=== PATIENT | female | born 1960 | race Caucasian/White ===

== ENCOUNTER 2017-12-01 15:08 | Emergency (ER) | payer BC, OTHER ==
[~2017-12-01] VITALS: Ht 172.7 cm; Wt 86.1 kg
[2017-12-01 15:13] VITALS: BP 162/84; PULSE 67; TEMP 36.7; O2SAT 98; Ht 172.7 cm; Wt 86.1 kg
--- NOTE | 2017-12-01 15:58 | DIAGNOSTIC IMAGING REPORT ---
L KNEE 3 VIEWS CLINICAL HISTORY: 57 years-old Female presenting with L knee pain. Please include standing/weight bearing AP. TECHNIQUE: Frontal view of the bilateral knees in standing position, lateral view of the left knee with weightbearing, and crosstable lateral and sunrise views of the left knee were obtained. COMPARISON: 08/18/2014. FINDINGS: The knee joints are essentially symmetric. General changes are noted of both knees. No gross evidence of acute osseous injury of the right knee. Tricompartmental osteophytosis of the left knee most severe in the medial compartment. No significant joint space loss. Enthesophyte noted at the insertion of the quadriceps tendon. Moderate knee joint effusion. No acute fracture or subluxation. Bony spurring at the medial aspect of the trochlear cartilage at the medial patellar facet. IMPRESSION: 1. Moderate knee joint effusion on the left. 2. Tricompartmental degenerative changes in the left knee most severe in the medial compartment. 3. Degenerative changes of the right knee. 4. No acute osseous injury. Electronically signed by: Gian Castillo M.D. 12/01/2017 3:56 PM Dictated Date/Time: 12/01/2017 3:54 PM
--- NOTE | 2017-12-01 16:14 | EMERGENCY ROOM VISIT NOTE ---
History First contact with patient: 15:17 Chief Complaint: KNEEPAIN Stated Complaint: L KNEE PAIN History of Present Illness The patient is a 57 year old female who presents to the Emergency Room via private vehicle with complaints of "left knee pain". The patient states that she has history of arthritis in the knee and has seen orthopedics about 3 years ago for this. She states that she has been on her feet for many days at her occupation. She states that she woke up this morning was feeling fine. While ambulating throughout the day she notes that she began with more and more knee pain at the left medial compartment of the left knee. She points to that region as location of pain that extends into the proximal tibia. She denies any trauma or injury. No fevers, chills, tick bites. She rates the overall pain as an 8/10. She denies any redness or excessive warmth to the joint. Review of Systems A complete 6-point Review of Systems was discussed with the patient, with pertinent positives and negatives listed in the History of Present Illness. All remaining Review of Systems questions can be considered negative unless otherwise specified. Past Medical/Surgical History Knee arthritis Family History No pertinent Social History Smoking Status: Never Smoker Patient is employed and lives locally. Current/Historical Medications No Active Prescriptions or Reported Meds Physical Exam Vital Signs Date Time Temp Pulse Resp B/P (MAP) Pulse Ox O2 Delivery O2 Flow Rate FiO2 12/01/17 15:13 36.7 67 18 162/84 98 Room Air Physical Exam VITAL SIGNS - Vital signs and nursing notes were reviewed. Stable. Afebrile. GENERAL -57-year-old female appearing her stated age who is in no acute distress. Communicates well with provider and answers questions appropriately. SKIN - Without rashes. Skin overlying the left knee is unremarkable. There is no erythema. No excessive warmth to the touch. Slightly larger in size in the right knee. EXTREMITIES - No clubbing or peripheral cyanosis. No pretibial edema present. Point tenderness of the medial compartment of the left knee. No laxity of the joint noted. Full range of motion assessed. No evidence of DVT or palpable cord. No bony deformity. Left knee slightly edematous but otherwise no excessive warmth and is not erythematous. +5/5 strength noted in UE/LE bilaterally. She is neurovascularly intact in left lower extremity. Medical Decision & Procedures ER Provider Diagnostic Interpretation: L KNEE 3 VIEWS CLINICAL HISTORY: 57 years-old Female presenting with L knee pain. Please include standing/weight bearing AP. TECHNIQUE: Frontal view of the bilateral knees in standing position, lateral view of the left knee with weightbearing, and crosstable lateral and sunrise views of the left knee were obtained. COMPARISON: 08/18/2014. FINDINGS: The knee joints are essentially symmetric. General changes are noted of both knees. No gross evidence of acute osseous injury of the right knee. Tricompartmental osteophytosis of the left knee most severe in the medial compartment. No significant joint space loss. Enthesophyte noted at the insertion of the quadriceps tendon. Moderate knee joint effusion. No acute fracture or subluxation. Bony spurring at the medial aspect of the trochlear cartilage at the medial patellar facet. IMPRESSION: 1. Moderate knee joint effusion on the left. 2. Tricompartmental degenerative changes in the left knee most severe in the medial compartment. 3. Degenerative changes of the right knee. 4. No acute osseous injury. Electronically signed by: Gian Castillo M.D. 12/01/2017 3:56 PM Dictated Date/Time: 12/01/2017 3:54 PM Medical Decision Patient was seen and evaluated as above in room D9. Review was performed of nursing notes and vital signs. After obtaining a thorough history and physical examination the above work up was performed. She presents to us today with atraumatic left-sided knee pain. She was on her feet all day today. There is no excessive warmth or erythema to the knee joint. No fevers. Vital signs stable. I do not suspect septic joint. I did review the x-rays performed 2014 and compared them to today's. There is some change in degeneration. I suspect this will be arthritic change. I believe that nonweightbearing and compression and elevation is most warranted. She declined crutches/walker. Paul wrap was applied. She is to call orthopedics first thing Sunday morning or return with worsening. The patient was educated upon management, educated upon todays findings/results, educated upon symptoms in which to return, had questions answered prior to discharge, and was discharged home in good condition. In the evaluation and treatment of this patient, the following differential diagnoses were considered: Patellar Fracture, Tibial Plateau Fracture, Distal Femur Fracture, ACL Injury, PCL Injury, Collateral Ligament Injury, Pes Anserine Bursitis, Maisonneuve Fracture. Impression Primary Impression: Knee pain Departure Information Dispostion Home / Self-Care Condition GOOD Prescriptions No Active Prescriptions or Reported Meds Referrals Gian Handley M.D. (PCP) Juan Carlos Gibbons M.D. Patient Instructions My [facility] Additional Instructions You have been treated in the Emergency Department for Knee Pain. As we discussed I believe this is from degenerative change in the knee joint. I do not suspect any infection. If you develop fevers, chills, the knee turns really red or hot to the touch please return. For pain control, you can use the following [id number] medicines (if >12 yo): - Regular strength (325mg/tab) Tylenol (acetaminophen) 2 tabs every 4-6 hours as needed. Do not exceed 12 tablets in a 24 hour period. Avoid taking more than 3 grams (3000 mg) of Tylenol per day. This includes any other sources of acetaminophen you may take on a regular basis. - Regular strength (200 mg/tab) Advil (ibuprofen) 1-2 tabs every 4-6 hours as needed. Do not exceed a dose of 3200 mg per day. If this is a recent injury (<24 hrs), ice can be applied to the area of pain for the first 3 days to help decrease pain and inflammation. Ice massages can be performed by freezing water in a paper cup, peeling back the cup to expose the ice and then massaging over the affected area. You have been provided the number for an Orthopaedic Surgeon. You should call this number as soon as possible to establish a follow-up visit from today's Emergency Department visit. Please do not bear any weight on the knee. Please use the Paul wrap. Return to the Emergency Department if your current symptoms worsen despite treatment course outlined above.
== END 2017-12-01 16:26 | disposition home or self-care (01) ==
LOC: C.EDB 15:09 → C.EDD 16:26
DX: M25.562 Pain in left knee (principal); M17.9 Osteoarthritis of knee, unspecified

== ENCOUNTER → 2017-12-07 | Outpatient (CLI) | payer BC, OTHER | END | disposition home or self-care (01) | LOC: C.RDSM 11:40 | PROVIDERS: ATTEND Orthopaedic Surgery | DX: R52 Pain, unspecified (principal) ==